=== PATIENT | female | born 1995 | race Caucasian/White ===

== ENCOUNTER 2017-10-23 19:55 | Emergency (ER) | payer OTHER ==
[2017-10-23 20:31] LABS: % BASOPHILS 0.5 % (0.0-2.0); % MONOCYTES 6.7 % (2.0-10.0); % NEUTROPHILS 74.8 % (40.0-80.0); EOSINOPHILE ABSOLUTE 0.1 Th/cmm (0.1-0.4); HEMATOCRIT 34.4 % (41.0-60); HEMOGLOBIN 10.9 gm/dL (12-16); LYMPHOCYTE ABSOLUTE 1.7 Th/cmm (1.5-3.0); MEAN CORPUSCULAR HEMOGLOBIN 20.7 pg (27.0-31.0); MEAN CORPUSCULAR HGB CONC 31.7 pg (28.0-36.0); MEAN PLATELET VOLUME 8.8 fl; MONOCYTE ABSOLUTE 0.7 Th/cmm (0.3-1.0); NEUTROPHILE ABSOLUTE 7.4 Th/cmm (1.8-8.0); PLATELET COUNT 312 Th/cmm (150-400); RED BLOOD COUNT 5.29 Mil/cmm (3.80-5.10); RED CELL DISTRIBUTION WIDTH 16.3 % (11.5-20.0); WHITE BLOOD COUNT 9.9 Th/cmm (4.8-10.8)
--- NOTE | 2017-10-23 20:32 | ED Physician Chart ---
ED Chief Complaint/HPI - Patient Information Date Seen:: 10/23/17 Time Seen:: 20:20 Chief Complaint:: vaginal bleeding History of Present Illness:: THIS IS A 22 YO FEMALE WHO STATES THAT SHE HAS HAD THREE TIMES AND HAS BLED EACH TIME. SHE IS NOW CONCERN BECAUSE THERE IS ALSO PAIN ASSOCIATED WITH THE BLEEDING. 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 Allergies:: Allergies Allergy/AdvReac Type Severity Reaction Status Date / Time Sulfa (Sulfonamide Allergy Verified 10/23/17 20:18 Antibiotics) Vitals:: Vital Signs - 8 hr 10/23/17 20:12 Temp 97.6 F HR 97 RR 16 BP 144/84 O2 Sat % 100 Historian:: Patient Review:: Nurse's Note Reviewed ED Review of Systems - Review of Systems General/Constitutional: No fever, No chills, No weight loss, No weakness, No diaphoresis, No edema, No loss of appetite Skin: No skin lesions, No rash, No bruising Head: No headache, No light-headedness Eyes: No loss of vision, No pain, No diplopia ENT: No earache, No nasal drainage, No sore throat, No tinnitus Neck: No neck pain, No swelling, No thyromegaly, No stiffness, No mass noted Cardio Vascular: No chest pain, No palpitations, No PND, No orthopnea, No edema Pulmonary: No SOB, No cough, No sputum, No wheezing GI: No nausea, No vomiting, No diarrhea, No pain, No melena, No hematochezia, No constipation, No hematemesis G/U: No dysuria, No frequency, No hematuria 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 bleed Musculoskeletal: No bone or joint pain, No back pain, No muscle pain Endocrine: No polyuria, No polydipsia Psychiatric: No prior psych history, No depression, No anxiety, No suicidal ideation Hematopoietic: No bruising, No lymphadenopathy Allergic/Immuno: No urticaria, No angioedema Neurological: No syncope, No focal symptoms, No weakness, No paresthesia, No headache, No seizure, No dizziness, No confusion, No vertigo ED Past Medical History - Past Medical History Obtainable: Yes Family History: None Social History: Non Smoker, No Alcohol, No Drug Use Surgical History: Appendectomy Psychiatricy History: None Medication: Reviewed Family Medical History - Family Member Mother History Unknown: Yes ED Physical Exam - Physical Examination General/Constitutional: Awake, Well-developed, well-nourished, Alert, No distress, GCS 15, Non-toxic appearing, Ambulatory Head: Atraumatic Eyes: Lids, conjuctiva normal, PERRL, EOMI Skin: Nl inspection, No rash, No skin lesions, No ecchymosis, Well hydrated, No lymphadenopathy ENMT: External ears, nose nl, Nasal exam nl, Lips, teeth, gums nl Neck: Nontender, Full ROM w/o pain, No JVD, No nuchal rigidity, No bruit, No mass, No stridor Respiratory: Nl effort/Exclusion, Clear to Auscultation, No Wheeze/Rhonchi/Rales Cardio Vascular: RRR, No murmur, gallop, rubs, NL S1 S2 GI: No tenderness/rebounding/guarding, No organomegaly, No hernia, Normal BS's, Nondistended, No mass/bruits, No McBurney tenderness : No CVA tenderness Extremities: No tenderness or effusion, Full ROM, normal strength in all extremities, No edema, Normal digits & nails Neuro/Psych: Alert/oriented, DTR's symmetric, Normal sensory exam, Normal motor strength, Judgement/insight normal, Mood normal, Normal gait, No focal deficits Misc: Normal back, No paraspinal tenderness ED Labs/Radiology/EKG Results - Lab Results Results: Abnormal Lab Results 10/23/17 10/23/17 10/23/17 20:25 20:26 20:26 WBC 9.9 RBC 5.29 H Hgb 10.9 L Hct 34.4 L MCV 65.1 L MCH 20.7 L MCHC Differential 31.7 RDW 16.3 Plt Count 312 MPV 8.8 Neutrophils % 74.8 Lymphocytes % 17.0 L Monocytes % 6.7 Eosinophils % 1.0 Basophils % 0.5 Sodium 137 Potassium 3.8 Chloride 106 Carbon Dioxide 24.4 Anion Gap 10.4 BUN 14 Creatinine 0.7 Est GFR ( Amer) > 60.0 Est GFR (Non-Af Amer) > 60.0 BUN/Creatinine Ratio 20.0 Glucose 100 Calcium 8.9 Total Bilirubin 0.3 AST 11 L ALT 7 Alkaline Phosphatase 58 Total Protein 7.1 Albumin 4.2 Globulin 2.9 Albumin/Globulin Ratio 1.5 Urine Color YELLOW Urine Clarity HAZY Urine pH 6.0 Ur Specific [place] >= 1.030 Urine Protein NEGATIVE Urine Glucose (UA) NEGATIVE Urine Ketones NEGATIVE Urine Blood LARGE H Urine Nitrate NEGATIVE Urine Bilirubin NEGATIVE Urine Urobilinogen 0.2 Ur Leukocyte Esterase NEGATIVE ED Assessment - Assessment General Assessment: VAGINAL BLEEDING HAS STOPPED ED Septic Shock - . Is Septic Shock (SBP<90, OR Lactate>4 mmol\L) present?: No - <6hrs of presentation: Vital Signs: Vital Signs - 8 hr /02/01 20:12 Temp 97.6 F HR 97 RR 16 BP 144/84 O2 Sat % 100 ED Reassessment (Disposition) - Reassessment Reassessment:: VAGINAL BLEEDING - Diagnosis Diagnosis:: ABNORMAL VAGINAL BLEEDING - Aftercare/Follow up Instructions Aftercare/Follow-Up Instructions:: Counseled pt regarding lab results/diagnosis & need follow up, Refer to Discharge Instructions, Counseled pt & family regarding lab results/diagnosis & need follow up - Patient Disposition Discharge/Transfer:: Home Condition at Disposition:: Improved ED Discharge Plan - Patient Disposition Prescriptions: Gabapentin 600 mg PO Q8HR PRN #20 tablet PRN Reason: PAIN Instructions: Pelvic Pain, Female, [place] Additional Instructions: MAKE A FOLLOW UP WITH PRIMARY MEDICAL DOCTOR (OB-GYNE) KANIKA, COMPLY WITH PRESCRIBED MEDICATION, GO BACK TO EMERGENCY ROOM IF SYMPTOMS WORSEN.
[2017-10-23 20:46] LABS: ALB/GLOB RATIO 1.5 (1.0-1.8); ALBUMIN 4.2 gm/dL (3.7-5.3); ALKALINE PHOSPHATASE 58 U/L (34-104); ANION GAP 10.4 (7.0-16.0); BILIRUBIN,TOTAL 0.3 mg/dL (0.3-1.0); BUN - UREA NITROGEN 14 mg/dL (7-25); CALCIUM SERUM 8.9 mg/dL (8.6-10.3); CARBON DIOXIDE 24.4 mEq/L (21.0-31.0); CHLORIDE 106 mEq/L (98-107); CREATININE - SERUM 0.7 mg/dL (0.6-1.2); GFR AFRICAN-AMERICAN > 60.0 ml/min (>90); GFR NON AFRICAN-AMERICAN > 60.0 ml/min; GLUCOSE 100 mg/dL (70-105); POTASSIUM SERUM 3.8 mEq/L (3.5-5.1); SGOT 11 U/L (13-39); SGPT/ALT 7 U/L (7-52); SODIUM SERUM 137 mEq/L (136-145); TOTAL PROTEIN,SERUM 7.1 gm/dL (6.0-8.3)
[2017-10-23 20:57] LABS: MEAN CELL VOLUME 65.1 fl (81-100)
[2017-10-23 21:01] LABS: URINE MICROSCOPIC INDICATED? YES; URINE SOURCE CLEAN C
[2017-10-23 21:04] LABS: URINE BILIRUBIN NEGATIVE (NEGATIVE); URINE BLOOD LARGE (NEGATIVE); URINE GLUCOSE (UA) NEGATIVE (NEGATIVE); URINE KETONE NEGATIVE (NEGATIVE); URINE LEUKOCYTE ESTERASE NEGATIVE (NEGATIVE); URINE NITRATE NEGATIVE (NEGATIVE); URINE PROTEIN NEGATIVE (NEGATIVE); URINE UROBILINOGEN 0.2 E.U./dL (0.2 - 1.0)
[2017-10-23 21:14] LABS: URINE CLARITY HAZY (CLEAR); URINE COLOR YELLOW
[2017-10-23 21:17] LABS: URINE BACTERIA FEW /hpf (NONE SEEN); URINE EPITHELIAL CELLS MODERATE /lpf (FEW); URINE WBC 0-2 /hpf (0-5)
== END 2017-10-23 21:15 | disposition home or self-care (01) ==
LOC: ER 19:55
DX: N93.9 Abnormal uterine and vaginal bleeding, unspecified (principal); Z88.2 Allergy status to sulfonamides; Z90.49 Acquired absence of other specified parts of digestive tract
CPT/HCPCS: 36415-UA; 80053-TC; 81001-TC; 85025-TC; Z7502

== ENCOUNTER 2018-03-07 12:24 | Emergency (ER) | payer OTHER ==
--- NOTE | 2018-03-07 16:49 | ED Physician Chart ---
ED Chief Complaint/HPI - Patient Information Date Seen:: 03/07/18 Time Seen:: 13:03 Chief Complaint:: LUE erythema History of Present Illness:: LUE erythema Patient stated that she picked on the area in the past. Allergies:: Allergies Allergy/AdvReac Type Severity Reaction Status Date / Time Sulfa (Sulfonamide Allergy Verified 10/23/17 20:18 Antibiotics) Vitals:: Vital Signs - 8 hr 03/07/18 13:03 Temp 97.4 F HR 108 RR 16 BP 158/89 O2 Sat % 97 Historian:: Patient ED Review of Systems - Review of Systems General/Constitutional: No fever, No chills, No weight loss, No weakness, No diaphoresis, No edema, No loss of appetite Skin: Other (LUE erythema) Head: No headache, No light-headedness Eyes: No loss of vision, No pain, No diplopia ENT: No earache, No nasal drainage, No sore throat, No tinnitus Neck: No neck pain, No swelling, No thyromegaly, No stiffness, No mass noted Cardio Vascular: No chest pain, No palpitations, No PND, No orthopnea, No edema Pulmonary: No SOB, No cough, No sputum, No wheezing GI: No nausea, No vomiting, No diarrhea, No pain, No melena, No hematochezia, No constipation, No hematemesis G/U: No dysuria, No frequency, No hematuria Musculoskeletal: No bone or joint pain, No back pain, No muscle pain Endocrine: No polyuria, No polydipsia Psychiatric: No prior psych history, No depression, No anxiety, No suicidal ideation Hematopoietic: No bruising, No lymphadenopathy Allergic/Immuno: No urticaria, No angioedema Neurological: No syncope, No focal symptoms, No weakness, No paresthesia, No headache, No seizure, No dizziness, No confusion, No vertigo ED Past Medical History - Past Medical History Obtainable: Yes Past Medical History: Other (obtained suboxone illegally for friend; meth use) Social History: Illicit Drug Use Family Medical History - Family Member Mother History Unknown: Yes ED Physical Exam - Physical Examination General/Constitutional: Awake, Well-developed, well-nourished, Alert, No distress, GCS 15, Non-toxic appearing, Ambulatory Head: Atraumatic Eyes: Lids, conjuctiva normal Other Skin comments:: LUE erythema without lymphangitis and without lymphadenopathy. Area (scab) in center where she pushed on it to get pus out before. ENMT: External ears, nose nl Neck: Nontender, No nuchal rigidity Respiratory: Nl effort/Exclusion, Clear to Auscultation Cardio Vascular: RRR, No murmur, gallop, rubs, NL S1 S2 GI: No tenderness/rebounding/guarding, No organomegaly : No CVA tenderness Other Extremities comments:: LUE erythema without lymphangitis and without lymphadenopathy. Area (scab) in center where she pushed on it to get pus out before. NO ABSCESS PRESENT. NOTHING THAT NEEDS TO BE INCISED AND DRAINED. Neuro/Psych: Alert/oriented, Normal sensory exam, Normal motor strength, Judgement/insight normal, Mood normal ED Assessment - Assessment General Assessment: patient refuses IV medication because she says that we will never be able to get an IV into her. ED Septic Shock - . Is Septic Shock (SBP<90, OR Lactate>4 mmol\L) present?: No - <6hrs of presentation: Vital Signs: Vital Signs - 8 hr 03/07/18 13:03 Temp 97.4 F HR 108 RR 16 BP 158/89 O2 Sat % 97 ED Reassessment (Disposition) - Reassessment Reassessment Condition:: Improved - Diagnosis Diagnosis:: LUE cellulitis without abscess. - Aftercare/Follow up Instructions Aftercare/Follow-Up Instructions:: Refer to Discharge Instructions Notes:: follow up with primary care physician as needed [place] with betadine and cover. Ice pack on top of dressing. do not pick at the area at all. Medication Prescribed:: doxycycline 100 mg po bid # 20 betadine solution apply bid - Patient Disposition Discharge/Transfer:: Home Condition at Disposition:: Stable, Improved
== END 2018-03-07 17:19 | disposition home or self-care (01) ==
LOC: ER 12:24
DX: L03.114 Cellulitis of left upper limb (principal); Z88.2 Allergy status to sulfonamides
CPT/HCPCS: 81025-TC; J0696; J1885; J2001; Z7502

== ENCOUNTER 2018-04-26 06:42 | Emergency (ER) | payer OTHER ==
--- NOTE | 2018-04-26 11:02 | ED Physician Chart ---
ED Chief Complaint/HPI - Patient Information Date Seen:: 04/26/18 Time Seen:: 06:50 Chief Complaint:: Facial Redness History of Present Illness:: onset x 3 days of right facial erythema and swelling with some drainage after an insect bite 3 days ago; pt's last tetanus shot: < 5 years; UTD; pt denies trauma, LOC, ALOC, AMS, H/As, S/T, neck pain, C/P, SOB, Abd. Pain, A/N/V/D/C, fever, chills, or urinary s/s; LNMP: 04/23/18; pt denies Allergies:: Allergies Allergy/AdvReac Type Severity Reaction Status Date / Time Sulfa (Sulfonamide Allergy Verified 10/23/17 20:18 Antibiotics) Vitals:: Vital Signs - 8 hr 04/26/18 06:50 Temp 97.9 F HR 97 RR 18 BP 140/87 O2 Sat % 98 Historian:: Patient Review:: Nurse's Note Reviewed, Old Chart Reviewed ED Review of Systems - Review of Systems General/Constitutional: No fever, No chills, No weight loss, No weakness, No diaphoresis, No edema, No loss of appetite Skin: No skin lesions, No rash, No bruising Head: No headache, No light-headedness Eyes: No loss of vision, No pain, No diplopia ENT: No earache, No nasal drainage, No sore throat, No tinnitus Neck: No neck pain, No swelling, No thyromegaly, No stiffness, No mass noted Cardio Vascular: No chest pain, No palpitations, No PND, No orthopnea, No edema Pulmonary: No SOB, No cough, No sputum, No wheezing GI: No nausea, No vomiting, No diarrhea, No pain, No melena, No hematochezia, No constipation, No hematemesis G/U: No dysuria, No frequency, No hematuria, No nacturia 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: No vaginal discharge, No abnormal vaginal bleed, No contraction Musculoskeletal: No bone or joint pain, No back pain, No muscle pain Endocrine: No polyuria, No polydipsia Psychiatric: No prior psych history, No depression, No anxiety, No suicidal ideation, No homicidal ideation, No auditory hallucination, No visual hallucination Hematopoietic: No bruising, No lymphadenopathy Allergic/Immuno: No urticaria, No angioedema Neurological: No syncope, No focal symptoms, No weakness, No paresthesia, No headache, No seizure, No dizziness, No confusion, No vertigo ED Past Medical History - Past Medical History Obtainable: Yes Past Medical History: No significant medical hx Family History: None Social History: Non Smoker, No Alcohol, No Drug Use, Single Surgical History: None Psychiatricy History: None Medication: Reviewed Family Medical History - Family Member Mother History Unknown: Yes Living Status: Still Living ED Physical Exam - Physical Examination General/Constitutional: Awake, Well-developed, well-nourished, Alert, No distress, GCS 15, Non-toxic appearing, Ambulatory Head: Atraumatic Eyes: Lids, conjuctiva normal, PERRL, EOMI Skin: Nl inspection, No rash, No skin lesions, No ecchymosis, Well hydrated, No lymphadenopathy Other Skin comments:: + Localized Cellulitis around a PW and draining abscess at the right zygomatic region of pt's face; no FBs; good motor, tendon, and sensory functions; good NV functions ENMT: External ears, nose nl, TM canals nl, Nasal exam nl, Lips, teeth, gums nl , Oropharynx nl, Tonsils nl Neck: Nontender, Full ROM w/o pain, No JVD, No nuchal rigidity, No bruit, No mass, No stridor Other Neck comments:: supple; no meningeal signs; no cervical tenderness; no bruits Respiratory: Nl effort/Exclusion, Clear to Auscultation, No Wheeze/Rhonchi/Rales Cardio Vascular: RRR, No murmur, gallop, rubs, NL S1 S2, Carotid/Femoral/Distal pulses equal bilaterally GI: No tenderness/rebounding/guarding, No organomegaly, No hernia, Normal BS's, Nondistended, No mass/bruits, No McBurney tenderness, Rectum exam nl Other GI comments:: no pulsatile masses : No CVA tenderness Extremities: No tenderness or effusion, Full ROM, normal strength in all extremities, No edema, Normal digits & nails Neuro/Psych: Alert/oriented, DTR's symmetric, Normal sensory exam, Normal motor strength, Judgement/insight normal, Mood normal, Normal gait, No focal deficits Other Neuro/Psych comments:: no focal signs Misc: Normal back, No paraspinal tenderness ED Labs/Radiology/EKG Results - Lab Results Comments:: deferred by pt ED Septic Shock - . Is Septic Shock (SBP<90, OR Lactate>4 mmol\L) present?: No - <6hrs of presentation: Vital Signs: Vital Signs - 8 hr 04/26/18 06:50 Temp 97.9 F HR 97 RR 18 BP 140/87 O2 Sat % 98 ED Reassessment (Disposition) - Reassessment Reassessment:: pt is asymptomatic upon discharge Reassessment Condition:: Improved - Diagnosis Diagnosis:: Localized Cellulitis; Facial Abscess; Puncture Wound; Insect Bite; Insect Bite Wound; Facial Cellulitis - Aftercare/Follow up Instructions Aftercare/Follow-Up Instructions:: Counseled pt regarding lab results/diagnosis & need follow up, Refer to Discharge Instructions, Counseled pt & family regarding lab results/diagnosis & need follow up Medication Prescribed:: Rx: Keflex 500mg po qid x 10 days; Neosporin Ointment bid x 14 days; Warm Compresses and/or Heating Pads to affected areas; Skin Care Instructions - Patient Disposition Discharge/Transfer:: Home Condition at Disposition:: Stable, Improved (RTER prn if existing s/s reoccur and/or get worse and/or any other new s/s occur; ACIs given for all above Dx; Refer to Metal Products Fabricator Assembler/Vascular Surgeon/Water Quality Control Engineer [facility]; F/U with PMD in one day or prn; RTER prn if concerned)
== END 2018-04-26 07:43 | disposition home or self-care (01) ==
LOC: ER 06:42
DX: L03.211 Cellulitis of face (principal); L02.01 Cutaneous abscess of face; S01.83XA Puncture wound without foreign body of other part of head, initial encounter; Z88.2 Allergy status to sulfonamides; W57.XXXA Bitten or stung by nonvenomous insect and other nonvenomous arthropods, initial encounter; Y93.89 Activity, other specified; Y92.89 Other specified places as the place of occurrence of the external cause; Y99.8 Other external cause status
CPT/HCPCS: Z7502

== ENCOUNTER 2018-06-12 11:59 | Emergency (ER) | payer MEDICAID, OTHER ==
--- NOTE | 2018-06-18 13:08 | ED Physician Chart ---
ED Chief Complaint/HPI - Patient Information Date Seen:: 06/12/18 Time Seen:: 12:08 Chief Complaint:: R facial redness (h/o staph) History of Present Illness:: R facial redness (h/o staph) patient has a h/o staph infection. picks at her facial area. no evidence of abscess at this time. no pus. positive erythema. Allergies:: Allergies Allergy/AdvReac Type Severity Reaction Status Date / Time Sulfa (Sulfonamide Allergy Verified 10/23/17 20:18 Antibiotics) Historian:: Patient Review:: Nurse's Note Reviewed ED Review of Systems - Review of Systems General/Constitutional: No fever, No chills, No weight loss, No weakness, No diaphoresis, No edema, No loss of appetite Skin: No skin lesions, No rash, No bruising, Other (R facial redness (h/o staph) ; positive erythema. no abscess. no pus.) Head: No headache, No light-headedness Eyes: No loss of vision, No pain, No diplopia ENT: No earache, No nasal drainage, No sore throat, No tinnitus Neck: No neck pain, No swelling, No thyromegaly, No stiffness, No mass noted Cardio Vascular: No chest pain, No palpitations, No PND, No orthopnea, No edema Pulmonary: No SOB, No cough, No sputum, No wheezing GI: No nausea, No vomiting, No diarrhea, No pain, No melena, No hematochezia, No constipation, No hematemesis G/U: No dysuria, No frequency, No hematuria Musculoskeletal: No bone or joint pain, No back pain, No muscle pain Endocrine: No polyuria, No polydipsia Psychiatric: No prior psych history, No depression, No anxiety, No suicidal ideation Hematopoietic: No bruising, No lymphadenopathy Allergic/Immuno: No urticaria, No angioedema Neurological: No syncope, No focal symptoms, No weakness, No paresthesia, No headache, No seizure, No dizziness, No confusion, No vertigo ED Past Medical History - Past Medical History Obtainable: Yes Past Medical History: Other (h/o staph infection) Family Medical History - Family Member Mother History Unknown: Yes Living Status: Still Living ED Physical Exam - Physical Examination General/Constitutional: Awake, Well-developed, well-nourished, Alert, No distress, GCS 15, Non-toxic appearing, Ambulatory Head: Atraumatic Eyes: Lids, conjuctiva normal, PERRL, EOMI Other Skin comments:: R facial redness (h/o staph); positive erythema. no abscess. no pus. ENMT: External ears, nose nl, Nasal exam nl, Lips, teeth, gums nl Neck: Nontender, No stridor Respiratory: Nl effort/Exclusion, Clear to Auscultation, No Wheeze/Rhonchi/Rales Cardio Vascular: RRR, No murmur, gallop, rubs, NL S1 S2 GI: No tenderness/rebounding/guarding, No organomegaly, No hernia, Normal BS's, Nondistended, No mass/bruits, No McBurney tenderness : No CVA tenderness Extremities: No tenderness or effusion, Full ROM, normal strength in all extremities, No edema, Normal digits & nails Neuro/Psych: Alert/oriented, Normal sensory exam, Normal motor strength, Judgement/insight normal, Mood normal, Normal gait, No focal deficits Misc: Normal back, No paraspinal tenderness ED Assessment - Assessment General Assessment: patient refuses antibiotic injection. only wants antibiotics by mouth. I encouraged her to get an injection, but she refused it. ED Septic Shock - . Is Septic Shock (SBP<90, OR Lactate>4 mmol\L) present?: No ED Reassessment (Disposition) - Reassessment Reassessment Condition:: Unchanged - Diagnosis Diagnosis:: Right face staph infection, no evidence of abscess. - Aftercare/Follow up Instructions Aftercare/Follow-Up Instructions:: Refer to Discharge Instructions Notes:: staph is highly infectious to others. please do not pick at the area (which you have been doing). follow up with your primary care physician. Medication Prescribed:: Keflex 500 mg po qid # 40 Doxycycline 100 mg po bid # 20 [place] betadine on the area bid - Patient Disposition Discharge/Transfer:: Home Condition at Disposition:: Stable, Unchanged
== END 2018-06-12 12:50 | disposition home or self-care (01) ==
LOC: ER 11:59
DX: L00 Staphylococcal scalded skin syndrome (principal); Z88.2 Allergy status to sulfonamides
CPT/HCPCS: Z7502

== ENCOUNTER 2018-10-31 09:58 | Emergency (ER) | payer MEDICAID ==
--- NOTE | 2018-10-31 10:54 | ED Physician Chart ---
ED Chief Complaint/HPI - Patient Information Date Seen:: 10/31/18 Time Seen:: 10:05 Chief Complaint:: Dental pain in left lower jaw History of Present Illness:: Pt brought in by private auto with her boyfriend Jorge A because of toothache in left lower jaw. Pt has noticed swelling in left lower jaw since last evening. No fever. No chill. Pt had transient N/V at about 8:30 am today with vomitus consists of gastric content. No hematemesis. Pt has been on pain control with Percocet and antibiotic therapy with amoxicillin prescribed by her dentist yesterday. Allergies:: Allergies Allergy/AdvReac Type Severity Reaction Status Date / Time Sulfa (Sulfonamide Allergy Verified 10/23/17 20:18 Antibiotics) Vitals:: Vital Signs - 8 hr 10/31/18 10:19 Temp 99.5 F HR 94 RR 17 BP 126/84 O2 Sat % 96 Historian:: Patient Family MD/PCP:: unknown. 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: No vaginal discharge, No abnormal vaginal bleed Musculoskeletal: No bone or joint pain Psychiatric: Prior psych history (h/o bipolar disorder), No depression, No suicidal ideation, No homicidal ideation, No auditory hallucination, No visual hallucination Hematopoietic: No bruising, No lymphadenopathy Allergic/Immuno: No urticaria, No angioedema Neurological: No syncope, No focal symptoms, No weakness, No paresthesia, No headache, No confusion ED Past Medical History - Past Medical History Past Medical History: No significant medical hx Family History: None Social History: Smoker (Pt has been informed about health risks associated with tobacco use and has been advised to quit. Pt has been encouraged to enroll in a smoking cessation program. Pt acknowledges understanding.), No Alcohol, No Drug Use, Single Employment:: unemplyed. Pt lives with her friend. Surgical History: Appendectomy (at age 10.) Psychiatricy History: Bipolar Medication: Reviewed Family Medical History - Family Member Mother History Unknown: Yes Living Status: Still Living ED Physical Exam - Physical Examination General/Constitutional: Awake, Well-developed, well-nourished (female), No distress, Non-toxic appearing, Ambulatory Other Gen/Cons comments:: Breathes comfortably, speaks clearly, and interacts appropriately. Head: Atraumatic Eyes: Lids, conjuctiva normal, PERRL, EOMI Skin: Nl inspection, No skin lesions, Well hydrated, No lymphadenopathy ENMT: External ears, nose nl, Nasal exam nl Other ENMT comments:: There is loss of most of first lower left molar tooth with discoloration of remaining tooth and edema in adjacent gingiva and soft tissue. No exudate. Neck: Nontender, Full ROM w/o pain, No nuchal rigidity, No mass, No stridor Respiratory: Nl effort/Exclusion, Clear to Auscultation, No Wheeze/Rhonchi/Rales Cardio Vascular: RRR, No murmur, gallop, rubs GI: No tenderness/rebounding/guarding, No organomegaly, Normal BS's, Nondistended, No mass/bruits Other GI comments:: Obese but soft. Extremities: No tenderness or effusion, Full ROM, No edema Neuro/Psych: Alert/oriented (oriented x 3), Normal gait, No focal deficits ED Septic Shock - . Is Septic Shock (SBP<90, OR Lactate>4 mmol\L) present?: No - <6hrs of presentation: Vital Signs: Vital Signs - 8 hr 10/31/18 10:19 Temp 99.5 F HR 94 RR 17 BP 126/84 O2 Sat % 96 ED Reassessment (Disposition) - Reassessment Reassessment:: 1205 Late entry: I was informed by nursing staff earlier that pt had walked out while I was attending other emergencies at the ER. Pt eloped without completion of this ER visit. - Diagnosis Diagnosis:: Pulpitis and probable dental abscess. - Patient Disposition Discharge/Transfer:: [place]/AWOL Condition at Disposition:: Stable
== END 2018-10-31 12:11 ==
LOC: ER 09:58
DX: K04.01 Reversible pulpitis (principal); K08.89 Other specified disorders of teeth and supporting structures; F31.9 Bipolar disorder, unspecified; F17.210 Nicotine dependence, cigarettes, uncomplicated; Z90.49 Acquired absence of other specified parts of digestive tract; Z88.2 Allergy status to sulfonamides
CPT/HCPCS: Z7502